=== PATIENT | female | born 1950 | race Caucasian/White ===

== ENCOUNTER 2022-08-10 11:30 | Outpatient (REF) | payer MEDICARE, OTHER, SELFPAY ==
[2022-08-10 13:31] LABS: MANUAL DIFF FLAG NO
[2022-08-10 13:38] LABS: Basophils Absolute Auto 0.1 X10*3/uL (0.0-0.2); Basophils Percent Auto 1.5 % (0-2); Eosinophils Absolute Auto 0.2 X10*3/uL (0.0-0.4); Eosinophils Percent Auto 2.7 % (0-4); Hematocrit 42.9 % (37.0-47.0); Hemoglobin 14.3 g/dl (12.0-16.0); Imm Gran Abs Auto 0.02 X10*3/uL (0.00-0.03); Imm Gran Pct Auto 0.3 % (0.0-0.4); Lymphocytes Percent Auto 17.2 % (20-40); Mean Corpuscular HGB Conc 33.3 g/dl (31.0-35.0); Mean Corpuscular Hemoglobin 30.1 pg (27.0-33.0); Mean Corpuscular Volume 90.3 fL (80.0-98.0); Mean Platelet Volume 10.9 fL (9.4-12.3); Monocytes Absolute Auto 0.4 X10*3/uL (0.1-1.2); Monocytes Percent Auto 7.2 % (2-11); Neutrophils Absolute Auto 4.2 x10*3/uL (2.0-8.3); Neutrophils Percent Auto 71.1 % (45-73); Platelet Count 236 X10*3/uL (160-400); Red Blood Count 4.75 X10*6/uL (4.20-5.50); White Blood Count 5.9 X10*3/uL (4.8-10.8)
[2022-08-10 13:58] LABS: Alanine Aminotransferase 18 U/L (0-31); Albumin Level 4.4 g/dL (3.5-5.0); Alkaline Phosphatase 71 U/L (39-117); Anion Gap 14 (12-20); Aspartate Amino Transferase 20 U/L (5-31); Bilirubin Total 0.8 mg/dL (0.0-1.0); Blood Urea Nitrogen 12 mg/dL (9-16); C Reactive Protein 0.12 mg/dL (< or = 0.50); Carbon Dioxide 29 mmol/L (22-29); Chloride 104 mmol/L (96-108); Estimated Glomerular Filt Rate > 60; Glucose Random 93 mg/dL (60-115); Potassium 4.6 mmol/L (3.3-5.1); Sodium 142 mmol/L (135-145); Total Protein 6.7 g/dL (6.5-8.0)
[2022-08-10 14:18] LABS: Rheumatoid Factor < 13.0 IU/mL (<15.0)
[2022-08-10 14:27] LABS: Erythrocyte Sedimentation Rate 12 MM/HR (0-20)
[2022-08-13 16:34] LABS: Cyclic Citrullinated Peptide <16 UNITS
== END 2022-08-10 11:31 | disposition home or self-care (01) ==
LOC: HO.10HDL 11:30
PROVIDERS: Visit Provider Internal Medicine Rheumatology
DX: Z13.89 Encounter for screening for other disorder (principal)
CPT/HCPCS: 36415; 80053; 85025; 85652; 86140; 86200; 86431

== ENCOUNTER → 2022-08-10 | Outpatient (BNVA) | payer MEDICARE, OTHER, SELFPAY | PROVIDERS: Visit Provider Internal Medicine Rheumatology | DX: M06.00 Rheumatoid arthritis without rheumatoid factor, unspecified site (principal); Z79.60 Long term (current) use of unspecified immunomodulators and immunosuppressants | CPT/HCPCS: 36415; 80053; 85025; 85652; 86140; 86200; 86431; 99202 ==

== ENCOUNTER 2022-11-11 09:43 | Outpatient (AMB) | payer MEDICARE, OTHER, SELFPAY ==
--- NOTE | 2022-11-11 09:46 | A.OFFVIS_ITS ---
Intake Vital Signs 11/11/22 09:47 Height 5 ft 2 in Weight 170 lb 3.15 oz BMI 31.1 BP 140/76 H Blood Pressure Location Rt brachial Position Sitting Pulse 70 Pulse Source Pulse Oximeter Temp 98.4 F Temp Source Skin Pulse Oximetry (%) 97 Intake Visit Reasons: ra Intake Note: Pt seen today for RA follow up. Reports 2 toes on left foot are turning ; left wrist pain. Boiler Reliner Required: No Accompanied by: Self / Same As Patient Allergies atorvastatin Allergy (Mild, Verified 11/11/22 09:48) Muscle cramps Medication List - Last Reconciled 11/11/22 by Michael Schmitt MD folic acid 1 mg PO DAILY leucovorin calcium 5 mg PO DAILY lisinopril 5 mg PO DAILY methotrexate sodium 12.5 mg (5 x 2.5 mg) PO QWEEK omeprazole 20 mg PO DAILY PRN propranolol ER 60 mg PO DAILY HPI HPI Comments History of Present Illness Details Patient returns for evaluation of her rheumatoid arthritis. She remains on 12.5 mg weekly methotrexate, folic acid 1 mg daily and Leucovorin 20 mg once a week. In general the joints have been reasonably comfortable with occasional discomfort in the wrists and the toes. I was trying to get her to reduce the dose of the Leucovorin. However when she got down to 5 mg weekly she felt there was some hair loss going on so she increased it back up to 20 mg weekly. There was no sign that she had skin rash on the scalp. She does not have any other side effects of note. She notes some changes in the direction of her toes in the left foot. [facility] Medical History (Updated 08/16/22 @ 17:53 by Michael Schmitt MD) Anemia Arthrosis of foot Atrial fibrillation Benign essential hypertension Gastroesophageal reflux Hearing loss Nonexudative age-related macular degeneration Obesity On intermodal owner operator truck driver drug therapy Osteopenia Pure hypercholesterolemia Rheumatoid arthritis Vitamin D deficiency Surgical History History of Hx of cataract surgery Hx of cholecystectomy S/P arthrocentesis Family History Father Hypertensive disorder Heart disease Mother Dementia Coronary arteriosclerosis Maternal Grandfather Dementia Social History (Reviewed 11/11/22 @ 09:49 by Courtney Massey [facility] Alcohol intake: current Alcohol intake frequency: does not drink Patient Tobacco Use Status: Former Tobacco user Quit Date: 1969 Review of Systems Const Details: Some thinning of the hair over the vertex. No scalp rashes. Negative for appetite change, weight change, fever, chills, malaise and fatigue Eyes Details: Negative for vision change, dry eyes,headaches and dizziness ENT Details: Negative for hearing change, tinnitus, oral ulcer, nose bleeds and oral dryness. Card Details: Negative chest pain, edema and syncope Resp Details: Negative for SOB, cough and wheezing GI Details: Negative indigestion/heartburn, nausea, abdominal pain, bowel changes, diarrhea, constipation and bloody stool. Skin/Breast Details: Negative for itching, rash, hives, Raynaud's symptoms, sun sensitivity, and skin cancer Endo Details: Negative for polyuria and polydypsia Nicko/Lymph Details: Negative for excessive bruising or bleeding. Physical Exam Vital Signs: Last Vital Signs Temp 98.4 F 11/11/22 09:47 Pulse 70 11/11/22 09:47 BP 140/76 H 11/11/22 09:47 Pulse Ox 97 11/11/22 09:47 BMI result Body Mass Index 31.1 APPEARANCE: Patient in no acute distress EYES no redness, pupils equal and reactive to light, eyelids normal EXTREMITIES: No edema, no calf tenderness, normal peripheral pulses. JOINT EXAM: ?? Cervical Spine:.? Full range of motion without pain; no tenderness. Thoracic Spine:.? No scoliosis.? No tenderness on palpation. Lumbar Spine:.? Alignment normal.? Full range of motion without pain, no tenderness. Chest Wall:.? No tenderness, swelling, increased warmth or erythema. Hands:? Right:? There is nontender swelling of all the MCP joints; this is a bit more prominent at the 2nd and 3rd MCP.? This hand seems smaller in size than the left hand.? There is mild tenderness and bony enlargement at the thumb IP joint.? There is slight tenderness along the thumb flexor tendon but no swelling or triggering.? There is no thenar atrophy or sensory loss.? Left:? There is slight thickening at the 1st 2 MCP joints but they are not tender. There is some slight thickening and mild pain at the thumb IP joint.? The remainder of the joints have no tenderness, swelling, flexor tendon triggering, thenar atrophy or sensory loss. Wrists:? Right: Flexion is intact only to 20 degrees and there is no extension.? There is slight pain at the extremes of these motions with some mild dorsal tenderness without swelling or redness.? Left:? Range of motion is limited to 20 degrees flexion or extension with some mild pain at those extremes.? There is mild tenderness without swelling.? No redness or warmth. Elbows:. Normal pain-free range of motion without tenderness, swelling, increased warmth or erythema. Shoulders:?? Full range of motion without pain. No tenderness, weakness, swelling, increased warmth or erythema. Hips:? Full range of motion without pain. Hip bursa:.? No tenderness. Knees:? Right: Mild patellofemoral crepitus and slight pain with extremes of flexion extension.? There is some mild medial tenderness, some valgus deformity but no effusion, redness or warmth.? Left:? The? Normal pain-free range of motion mild patellofemoral crepitus and some valgus deformity.? There is no effusion, tenderness, swelling, increased warmth or erythema.? Ankles:? Right:? The ankle looks larger than the left.? There is some pain with attempts at inversion and eversion and mild medial lateral tenderness but no redness or swelling.? There is evidence from surgery on the medial aspect.? There is slight discomfort with extremes of flexion extension but no swelling.? Left:? Normal pain-free range of motion with some slight medial tenderness but no swelling, increased warmth or erythema. Feet:? Right: There is some degree of a fallen arch in the foot.? There is hammertoes in the 2nd through 5th toes but these are not tender.? There is no instep or MTP tenderness.? The right foot seem smaller than the left.? Left:? Normal pain-free range of motion without tenderness, swelling, increased warmth or erythema. There is some slight lateral deviation in the toes. Tender points:.? No tenderness to digital palpation at the occiput, trapezius, second rib, lateral epicondyle, knees, greater trochanter and gluteal area bilaterally. ? Assessment & Plan Assessment & Plan (1) Long-term use of immunosuppressant medication: Code(s): Z79.60 - senior care (current) use of unspecified immunomodulators and immunosuppressants (2) Seronegative rheumatoid arthritis: Comment: Onset age 5. Triple arthrodesis right ankle as a child. 2008 put on methotrexate, not tolerated due to nausea 2009 Enbrel for a year. Not effective. 2010 Methotrexate restarted at a lower dose and was effective and tolerated Code(s): M06.00 - Rheumatoid arthritis without rheumatoid factor, unspecified site Plan There is longstanding rheumatoid arthritis here with some deformity. There is not much in the way of tenderness; there is some chronic swelling so I do not think there is much active synovitis. We will check lab work today and if that looks okay continue with the current dose of methotrexate. She did get some hair thinning she believes with the reduction in the Leucovorin so we will keep it up at 20 mg weekly. A follow-up in 3-4 months with lab work before that visit would be reasonable. Orders: Orders Alanine Aminotransferase Today M06.00 - Rheumatoid arthritis without rheumatoid factor, unspecified site, Z79.899 - Other intermodal owner operator truck driver (current) drug therapy Aspartate Amino Transferase Today M06.00 - Rheumatoid arthritis without rheumatoid factor, unspecified site, Z79.899 - Other intermodal owner operator truck driver (current) drug therapy Creatinine Today M06.00 - Rheumatoid arthritis without rheumatoid factor, unspecified site, Z79.899 - Other longterm (current) drug therapy C Reactive Protein Today M06.00 - Rheumatoid arthritis without rheumatoid factor, unspecified site Complete Blood Count Auto Diff Today M06.00 - Rheumatoid arthritis without rheumatoid factor, unspecified site, Z79.899 - Other intermodal owner operator truck driver (current) drug therapy Erythrocyte Sedimentation Rate Today M06.00 - Rheumatoid arthritis without rheumatoid factor, unspecified site Medications: Changed From leucovorin calcium 5 mg PO DAILY Z79.60 - supervisor intermediates (current) use of unspecified immunomodulators and immunosuppressants To leucovorin calcium 20 mg (4 x 5 mg) PO QWEEK 60 tabs 2RF Z79.60 - supervisor intermediates (current) use of unspecified immunomodulators and immunosuppressants Coding Level of Care Code Est Pt Level 3 (81150) Diagnoses Long-term use of immunosuppressant medication Z79.60 Seronegative rheumatoid arthritis M06.00
[2022-11-11 09:47] VITALS: BP 140/76; PULSE 70; TEMP 36.9; O2SAT 97; BMI 31.1
== END 2022-11-11 10:23 | disposition home or self-care (01) ==
PROVIDERS: Visit Provider Internal Medicine Rheumatology
DX: Z79.60 Long term (current) use of unspecified immunomodulators and immunosuppressants (principal); M06.00 Rheumatoid arthritis without rheumatoid factor, unspecified site
CPT/HCPCS: 99213

== ENCOUNTER → 2022-11-11 09:43 | Outpatient (BNVA) | payer MEDICARE, OTHER, SELFPAY | PROVIDERS: Visit Provider Internal Medicine Rheumatology ==

== ENCOUNTER 2022-11-11 10:27 | Outpatient (REF) | payer MEDICARE, OTHER, SELFPAY ==
[2022-11-11 11:04] LABS: MANUAL DIFF FLAG NO
[2022-11-11 11:42] LABS: Basophils Absolute Auto 0.1 X10*3/uL (0.0-0.2); Basophils Percent Auto 0.9 % (0-2); Eosinophils Absolute Auto 0.1 X10*3/uL (0.0-0.4); Eosinophils Percent Auto 1.4 % (0-4); Hematocrit 43.6 % (37.0-47.0); Hemoglobin 14.4 g/dl (12.0-16.0); Imm Gran Abs Auto 0.03 X10*3/uL (0.00-0.03); Imm Gran Pct Auto 0.3 % (0.0-0.4); Lymphocytes Percent Auto 10.7 % (20-40); Mean Corpuscular Hemoglobin 29.6 pg (27.0-33.0); Mean Corpuscular Volume 89.5 fL (80.0-98.0); Mean Platelet Volume 10.3 fL (9.4-12.3); Monocytes Absolute Auto 0.7 X10*3/uL (0.1-1.2); Monocytes Percent Auto 7.4 % (2-11); Neutrophils Absolute Auto 7.2 x10*3/uL (2.0-8.3); Neutrophils Percent Auto 79.3 % (45-73); Platelet Count 244 X10*3/uL (160-400); Red Blood Count 4.87 X10*6/uL (4.20-5.50); Red Cell Distribution Width 13.6 % (11.0-16.0)
[2022-11-11 12:12] LABS: Alanine Aminotransferase 18 U/L (0-31); Aspartate Amino Transferase 18 U/L (5-31); C Reactive Protein 0.27 mg/dL (< or = 0.50); Estimated Glomerular Filt Rate > 60
[2022-11-11 12:24] LABS: Erythrocyte Sedimentation Rate 12 MM/HR (0-20)
== END 2022-11-11 10:28 | disposition home or self-care (01) ==
LOC: HO.10HDL 10:27
PROVIDERS: Visit Provider Internal Medicine Rheumatology
DX: M06.00 Rheumatoid arthritis without rheumatoid factor, unspecified site (principal); Z79.899 Other long term (current) drug therapy
CPT/HCPCS: 36415; 82565; 84450; 84460; 85025; 85652; 86140

== ENCOUNTER 2023-03-15 09:45 | Outpatient (REF) | payer MEDICARE, OTHER, SELFPAY ==
[2023-03-15 10:22] LABS: MANUAL DIFF FLAG NO
[2023-03-15 10:32] LABS: Basophils Absolute Auto 0.1 X10*3/uL (0.0-0.2); Basophils Percent Auto 1.3 % (0-2); Eosinophils Absolute Auto 0.1 X10*3/uL (0.0-0.4); Eosinophils Percent Auto 2.5 % (0-4); Hematocrit 42.5 % (37.0-47.0); Hemoglobin 14.3 g/dl (12.0-16.0); Imm Gran Abs Auto 0.03 X10*3/uL (0.00-0.03); Imm Gran Pct Auto 0.5 % (0.0-0.4); Lymphocytes Absolute Auto 1.2 X10*3/uL (1.2-4.9); Lymphocytes Percent Auto 21.6 % (20-40); Mean Corpuscular HGB Conc 33.6 g/dl (31.0-35.0); Mean Corpuscular Hemoglobin 29.6 pg (27.0-33.0); Mean Platelet Volume 10.3 fL (9.4-12.3); Monocytes Absolute Auto 0.5 X10*3/uL (0.1-1.2); Monocytes Percent Auto 8.5 % (2-11); Neutrophils Absolute Auto 3.6 x10*3/uL (2.0-8.3); Neutrophils Percent Auto 65.6 % (45-73); Platelet Count 228 X10*3/uL (160-400); Red Blood Count 4.83 X10*6/uL (4.20-5.50); White Blood Count 5.5 X10*3/uL (4.8-10.8)
[2023-03-15 10:39] LABS: Alanine Aminotransferase 18 U/L (0-31); Aspartate Amino Transferase 19 U/L (5-31); C Reactive Protein 0.24 mg/dL (< or = 0.50); Estimated Glomerular Filt Rate > 60
[2023-03-15 11:18] LABS: Erythrocyte Sedimentation Rate 12 MM/HR (0-20)
== END 2023-03-15 09:46 | disposition home or self-care (01) ==
LOC: HO.10HDL 09:45
PROVIDERS: Visit Provider Internal Medicine Rheumatology
DX: M06.00 Rheumatoid arthritis without rheumatoid factor, unspecified site (principal); M75.81 Other shoulder lesions, right shoulder; Z79.60 Long term (current) use of unspecified immunomodulators and immunosuppressants; Z79.899 Other long term (current) drug therapy
CPT/HCPCS: 36415; 82565; 84450; 84460; 85025; 85652; 86140; 99212

== ENCOUNTER 2023-03-15 10:04 | Outpatient (AMB) | payer MEDICARE, OTHER, SELFPAY ==
--- NOTE | 2023-03-15 10:43 | MHC.OFFVIS ---
Intake Vital Signs 03/15/23 10:44 Height 5 ft 2 in Weight 171 lb 15.369 oz BMI 31.4 BP 102/64 Blood Pressure Location Lt brachial Position Sitting Pulse 54 Pulse Source Pulse Oximeter Temp 97.5 F Temp Source Skin Pulse Oximetry (%) 97 Oxygen Delivery Method Room Air Intake Visit Reasons: RA Intake Note: Patient presents today to follow up on RA. Last seen by Dr. Schmitt on 11/11/22. Four Slide Operator Required: No Accompanied by: Self / Same As Patient Allergies atorvastatin Allergy (Mild, Verified 03/15/23 10:45) Muscle cramps Medication List - Last Reconciled 03/15/23 by Michael Schmitt MD folic acid 1 mg PO DAILY leucovorin calcium 20 mg (4 x 5 mg) PO QWEEK lisinopril 5 mg PO DAILY methotrexate sodium 12.5 mg (5 x 2.5 mg) PO QWEEK omeprazole 20 mg PO DAILY PRN propranolol ER 60 mg PO DAILY HPI HPI Comments History of Present Illness Details The patient returns today for evaluation of her rheumatoid arthritis. She remains on methotrexate 12.5 mg once a week, folic acid 1 mg daily, and Leucovorin 20 mg once a week. The Leucovorin is supplied with 5 mg tablets so she takes 4 tablets once a week. Apparently there was a mixup and she not did get folic acid for a while. She also had held the methotrexate for 2 doses after her COVID vaccination. There has been a bit more pain in the right wrist and right shoulder region. She has from chronic pain in the right ankle where she has had previous surgery. There was no injury to the shoulder that she can recall. [facility] Medical History (Updated 03/15/23 @ 11:20 by Michael Schmitt MD) Arthrosis of foot On termite renewal inspector drug therapy Osteopenia Rheumatoid arthritis Gastroesophageal reflux Atrial fibrillation Benign essential hypertension Hearing loss Nonexudative age-related macular degeneration Anemia Obesity Pure hypercholesterolemia Vitamin D deficiency Surgical History S/P arthrocentesis History of Hx of cholecystectomy Hx of cataract surgery Family History Father Hypertensive disorder Heart disease Mother Dementia Coronary arteriosclerosis Maternal Grandfather Dementia Social History (Updated 03/15/23 @ 10:47 by HUGO Cunningham) Alcohol intake: former Patient Tobacco Use Status: Former Tobacco user Quit Date: 1969 Review of Systems Const Details: Negative for appetite change, weight change, fever, chills, malaise and fatigue Eyes Details: Negative for vision change, dry eyes,headaches and dizziness ENT Details: Negative for hearing change, tinnitus, oral ulcer, nose bleeds and oral dryness. Card Details: Negative chest pain, edema and syncope Resp Details: Negative for SOB, cough and wheezing GI Details: Negative indigestion/heartburn, nausea, abdominal pain, bowel changes, diarrhea, constipation and bloody stool. Endo Details: Negative for polyuria and polydypsia Nicko/Lymph Details: Negative for excessive bruising or bleeding. Physical Exam Vital Signs: Last Vital Signs Temp 97.5 F 03/15/23 10:44 Pulse 54 03/15/23 10:44 BP 102/64 03/15/23 10:44 Pulse Ox 97 03/15/23 10:44 Oxygen Delivery Method Room Air 03/15/23 10:44 BMI result Body Mass Index 31.4 APPEARANCE: Patient in no acute distress EXTREMITIES: No edema, no calf tenderness, normal peripheral pulses. JOINT EXAM: ?? Cervical Spine:.? Full range of motion without pain; no tenderness. Thoracic Spine:.? No scoliosis.? No tenderness on palpation. Lumbar Spine:.? Alignment normal.? Full range of motion without pain, no tenderness. Chest Wall:.? No tenderness, swelling, increased warmth or erythema. Hands:? Right:? There is nontender swelling of all the MCP joints; this is a bit more prominent at the 2nd and 3rd MCP.? This hand seems smaller in size than the left hand.? There is mild tenderness and bony enlargement at the thumb IP joint.? There is slight tenderness along the thumb flexor tendon but no swelling or triggering.? She has some slight thickening at the 3rd PIP without tenderness. There is no thenar atrophy or sensory loss.? Left:? There is slight thickening at the 1st 2 MCP joints but they are not tender. There is some slight thickening and mild pain at the thumb IP joint.? The thumb IP joint has no active extends in possible. However passive extension is normal. Is she is able however to oppose the thumb to the other 4 fingers. The remainder of the joints have no tenderness, swelling, flexor tendon triggering, thenar atrophy or sensory loss. Wrists:? Right: Flexion is intact only to 20 degrees and there is no extension.? There is slight pain at the extremes of these motions with some mild dorsal tenderness without swelling or redness.? Left:? Range of motion is limited to 20 degrees flexion or extension with some mild pain at those extremes.? There is mild tenderness without swelling.? No redness or warmth. Elbows:. Normal pain-free range of motion without tenderness, swelling, increased warmth or erythema. Shoulders:??Right: Mild pain with abduction at 150 degrees or with extremes of rotation. There is mild anterior tenderness without swelling. There is no abductor weakness or adenopathy. Left: Full range of motion without pain. No tenderness, weakness, swelling, increased warmth or erythema. Hips:? Full range of motion without pain. Hip bursa:.? No tenderness. Knees:? Right: Mild patellofemoral crepitus and slight pain with extremes of flexion extension.? There is some mild medial tenderness, some valgus deformity but no effusion, redness or warmth.? Left:? The? Normal pain-free range of motion mild patellofemoral crepitus and some valgus deformity.? There is no effusion, tenderness, swelling, increased warmth or erythema.? Ankles:? Right:? The ankle looks larger than the left.? There is some pain with attempts at inversion and eversion; no motion in that direction is possible. There is mild medial and lateral tenderness but no redness or swelling.? There is evidence from surgery on the medial aspect and there is mild valgus deformity.? There is slight discomfort with extremes of flexion and extension but no swelling.? Left:? Normal pain-free range of motion with some slight medial tenderness but no swelling, increased warmth or erythema. Feet:? Right: There is some degree of a fallen arch in the foot.? There is hammertoes in the 2nd through 5th toes but these are not tender.? There is no instep or MTP tenderness.? The right foot seem smaller than the left.? Left:? Normal pain-free range of motion without tenderness, swelling, increased warmth or erythema. There is some slight lateral deviation in the toes. Tender points:.? No tenderness to digital palpation at the occiput, trapezius, second rib, lateral epicondyle, knees, greater trochanter and gluteal area bilaterally. ? Results Reviewed Results Reviewed: Laboratory Tests 03/15/23 09:50 WBC 5.5 Hgb 14.3 AST 19 ALT 18 C-Reactive Protein 0.24 Assessment & Plan Assessment & Plan (1) Tendinitis of right rotator cuff: Code(s): M75.81 - Other shoulder lesions, right shoulder (2) Long-term use of immunosuppressant medication: Code(s): Z79.60 - intermediate accountant (current) use of unspecified immunomodulators and immunosuppressants (3) Seronegative rheumatoid arthritis: Comment: Onset age 5. Triple arthrodesis right ankle as a child. 2008 put on methotrexate, not tolerated due to nausea 2009 Enbrel for a year. Not effective. 2010 Methotrexate restarted at a lower dose and was effective and tolerated Code(s): M06.00 - Rheumatoid arthritis without rheumatoid factor, unspecified site Plan Rheumatoid arthritis with I think now notmuch in the way of active synovitis currently. She has longstanding disease with some deformity and limited motion in many joints. The wrists have limited range of motion so likely have some secondary OA. The right shoulder has some limited motion with pain suggesting some rotator cuff tendinitis although I can not rule out some underlying glenohumeral osteoarthritis and or rotator cuff attrition. We will try to get an x-ray of that shoulder and send her for some physical therapy. She wants to have the physical therapy done in [place] so we will try to arrange that. She will continue with the methotrexate, Leucovorin and folic acid as above. A follow-up at 3-4 months is reasonable. I have put in lab work to be done before that visit. Orders: Orders PT Evaluation and Treatment Today M75.81 - Other shoulder lesions, right shoulder XR shoulder RT min 2V Today M06.00 - Rheumatoid arthritis without rheumatoid factor, unspecified site Erythrocyte Sedimentation Rate 1 Month M06.00 - Rheumatoid arthritis without rheumatoid factor, unspecified site Alanine Aminotransferase Today M06.00 - Rheumatoid arthritis without rheumatoid factor, unspecified site, Z79.899 - Other termite renewal inspector (current) drug therapy Aspartate Amino Transferase Today M06.00 - Rheumatoid arthritis without rheumatoid factor, unspecified site, Z79.899 - Other termite renewal inspector (current) drug therapy C Reactive Protein 1 Month M06.00 - Rheumatoid arthritis without rheumatoid factor, unspecified site Complete Blood Count Auto Diff 1 Month M06.00 - Rheumatoid arthritis without rheumatoid factor, unspecified site, Z79.899 - Other fci (current) drug therapy Creatinine Today M06.00 - Rheumatoid arthritis without rheumatoid factor, unspecified site, Z79.899 - Other fci (current) drug therapy Coding Level of Care Code Est Pt Level 3 (88105) Diagnoses Tendinitis of right rotator cuff M75.81 Long-term use of immunosuppressant medication Z79.60 Seronegative rheumatoid arthritis M06.00
[2023-03-15 10:44] VITALS: BP 102/64; PULSE 54; TEMP 36.4; O2SAT 97; BMI 31.4
== END 2023-03-15 11:27 | disposition home or self-care (01) ==
PROVIDERS: PCP Family Medicine; Visit Provider Internal Medicine Rheumatology
DX: M75.81 Other shoulder lesions, right shoulder (principal); Z79.60 Long term (current) use of unspecified immunomodulators and immunosuppressants; M06.00 Rheumatoid arthritis without rheumatoid factor, unspecified site
CPT/HCPCS: 99213

== ENCOUNTER 2023-09-28 13:07 | Outpatient (AMB) | payer MEDICARE, OTHER, SELFPAY ==
--- NOTE | 2023-09-28 13:17 | MHC.OFFVIS ---
Vital Signs 09/28/23 13:23 Height 5 ft 2 in Weight 176 lb 2.389 oz BMI 32.2 BP 130/76 Blood Pressure Location Lt brachial Position Sitting Pulse 78 Pulse Oximetry (%) 96 Intake Visit Reasons: ra Intake Note: Patient previously seen on 03/15/[address] Schmitt, presents today for RA follow up. Pt reports onset of kathrin hip pain back in January that was controlled with prednisone. Reoccurrence x 1 wk. Allergies atorvastatin Allergy (Mild, Verified 09/28/23 13:24) Muscle cramps Medication List - Last Reconciled 09/28/23 by KATINA Ackerman- folic acid 1 mg PO BID leucovorin calcium 20 mg (4 x 5 mg) PO QWEEK lisinopril 5 mg PO DAILY methotrexate sodium 12.5 mg (5 x 2.5 mg) PO QWEEK omeprazole 20 mg PO DAILY PRN propranolol ER 60 mg PO DAILY HPI Comments Details: Ms. Bush 73 yoF returns today for follow up of her rheumatoid arthritis. She remains on methotrexate 12.5 mg once a week, folic acid 1 mg daily, and Leucovorin 20 mg once a week. The Leucovorin is supplied with 5 mg tablets so she takes 4 tablets once a week. Her right shoulder has been resolved. 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 --Upon inquiry about Folic Acid and Leucovorin quantity - Patient shares that she has been taking this combo for years. When Dr. Schmitt tried to reduce it she experienced increased hair loss. Recently also dud to a mix up in her RX, she was only given 1 mf Folic acid QD and then started having increased hair shedding. Dr. Velazquez gave her the original RX of 2mg QD folic Acid and this stopped the shedding. 03/15/2023 Dr. Schmitt: The patient returns today for evaluation of her rheumatoid arthritis. She remains on methotrexate 12.5 mg once a week, folic acid 1 mg daily, and Leucovorin 20 mg once a week. The Leucovorin is supplied with 5 mg tablets so she takes 4 tablets once a week. Apparently there was a mixup and she not did get folic acid for a while. She also had held the methotrexate for 2 doses after her COVID vaccination. There has been a bit more pain in the right wrist and right shoulder region. She has from chronic pain in the right ankle where she has had previous surgery. There was no injury to the shoulder that she can recall. [facility] Medical History (Updated 09/28/23 @ 13:47 by [facility]) Arthrosis of foot On prison drug therapy Osteopenia Rheumatoid arthritis Gastroesophageal reflux Atrial fibrillation Benign essential hypertension Hearing loss Nonexudative age-related macular degeneration Anemia Obesity Pure hypercholesterolemia Vitamin D deficiency Surgical History S/P arthrocentesis History of Hx of cholecystectomy Hx of cataract surgery Family History Father Hypertensive disorder Heart disease Mother Dementia Coronary arteriosclerosis Maternal Grandfather Dementia Social History Alcohol intake: former Patient Tobacco Use Status: Former Tobacco user Review of Systems Const All systems reviewed & are unremarkable except as noted in HPI and below Physical Exam Vital Signs: Last Vital Signs Pulse 78 09/28/23 13:23 BP 130/76 09/28/23 13:23 Pulse Ox 96 09/28/23 13:23 BMI result Body Mass Index 32.2 APPEARANCE: Patient in no acute distress EXTREMITIES: No edema, no calf tenderness, normal peripheral pulses. JOINT EXAM: ?? Cervical Spine:.? Full range of motion without pain; no tenderness. Thoracic Spine:.? No scoliosis.? No tenderness on palpation. Lumbar Spine:.? Alignment normal.? Full range of motion without pain, no tenderness. Chest Wall:.? No tenderness, swelling, increased warmth or erythema. Hands:? Right:? There is nontender swelling of all the MCP joints; this is a bit more prominent at the 2nd and 3rd MCP.? This hand seems smaller in size than the left hand.? There is mild tenderness and bony enlargement at the thumb IP joint.? There is slight tenderness along the thumb flexor tendon but no swelling or triggering.? She has some slight thickening at the 3rd PIP without tenderness. There is no thenar atrophy or sensory loss.? boutonneire deformity to thumb Left:? There is slight thickening at the 1st 2 MCP joints but they are not tender. There is some slight thickening and mild pain at the thumb IP joint.? The thumb IP joint has no active extends in possible. However passive extension is normal. She is able however to oppose the thumb to the other 4 fingers. The remainder of the joints have no tenderness, swelling, flexor tendon triggering, thenar atrophy or sensory loss. boutonneire deformity to thumb Wrists:? Right: Flexion is intact only to 20 degrees and there is no extension.? There is slight pain at the extremes of these motions with some mild dorsal tenderness without swelling or redness.? Left:? Range of motion is limited to 20 degrees flexion or extension with some mild pain at those extremes.? There is mild tenderness without swelling.? No redness or warmth. Elbows:. Normal pain-free range of motion without tenderness, swelling, increased warmth or erythema. Shoulders:??Right: Mild pain with abduction at 150 degrees or with extremes of rotation. There is mild anterior tenderness without swelling. There is no abductor weakness or adenopathy. Left: Full range of motion without pain. No tenderness, weakness, swelling, increased warmth or erythema. Hips:? Full range of motion without pain. Hip bursa:.? Bilateral tenderness. Knees:? Right: Mild patellofemoral crepitus and slight pain with extremes of flexion extension.? There is some mild medial tenderness, some valgus deformity but no effusion, redness or warmth.? Left:? The? Normal pain-free range of motion mild patellofemoral crepitus and some valgus deformity.? There is no effusion, tenderness, swelling, increased warmth or erythema.? Ankles:? Right:? The ankle looks larger than the left.? There is some pain with attempts at inversion and eversion; no motion in that direction is possible. There is mild medial and lateral tenderness but no redness or swelling.? There is evidence from surgery on the medial aspect and there is mild valgus deformity.? There is slight discomfort with extremes of flexion and extension but no swelling.? Left:? Normal pain-free range of motion with some slight medial tenderness but no swelling, increased warmth or erythema. Feet:? Right: There is some degree of a fallen arch in the foot.? There is hammertoes in the 2nd through 5th toes but these are not tender.? There is no instep or MTP tenderness.? The right foot seem smaller than the left.? Left:? Normal pain-free range of motion without tenderness, swelling, increased warmth or erythema. There is some slight lateral deviation in the toes. Tender points:.? No tenderness to digital palpation at the occiput, trapezius, second rib, lateral epicondyle, knees, greater trochanter and gluteal area bilaterally. ? Results Reviewed Results Reviewed: Laboratory Tests 03/15/23 09:50 RBC 4.83 Hgb 14.3 Hct 42.5 MCV 88.0 ESR 12 AST 19 ALT 18 C-Reactive Protein 0.24 Assessment & Plan Assessment & Plan (1) Tendinitis of right rotator cuff: Code(s): M75.81 - Other shoulder lesions, right shoulder Category: Medical (2) Long-term use of immunosuppressant medication: Code(s): Z79.60 - long term care phlebotomist (current) use of unspecified immunomodulators and immunosuppressants Category: Medical (3) Seronegative rheumatoid arthritis: Comment: Onset age 5. Triple arthrodesis right ankle as a child. 2008 put on methotrexate, not tolerated due to nausea 2009 Enbrel for a year. Not effective. 2010 Methotrexate restarted at a lower dose and was effective and tolerated Code(s): M06.00 - Rheumatoid arthritis without rheumatoid factor, unspecified site Category: Medical Plan #Rheumatoid arthritis with no active synovitis currently. She has longstanding disease with some deformity and limited motion in many joints. The wrists have limited range of motion so likely have some secondary, and underlying glenohumeral osteoarthritis and or rotator cuff attrition. She has completed physical therapy done in [place] and felt improvement. She will continue with the methotrexate 12.5mg, Leucovorin 20mg and folic acid 2mg Qd. A follow-up at 4 months is reasonable. I have put in lab work to be done today - last labs 03/2023. Orders: Orders Erythrocyte Sedimentation Rate 09/28/23 M06.00 - Rheumatoid arthritis without rheumatoid factor, unspecified site, Z79.60 - group home (current) use of unspecified immunomodulators and immunosuppressants Complete Blood Count Auto Diff 09/28/23 M06.00 - Rheumatoid arthritis without rheumatoid factor, unspecified site, Z79.60 - group home (current) use of unspecified immunomodulators and immunosuppressants Comprehensive Met. Panel 09/28/23 M06.00 - Rheumatoid arthritis without rheumatoid factor, unspecified site, Z79.60 - long term care phlebotomist (current) use of unspecified immunomodulators and immunosuppressants C Reactive Protein 09/28/23 M06.00 - Rheumatoid arthritis without rheumatoid factor, unspecified site, Z79.60 - group home (current) use of unspecified immunomodulators and immunosuppressants Medications: New omeprazole 20 mg PO DAILY PRN 90 caps 1RF GERD K21.9 - Gastro-esophageal reflux disease without esophagitis Changed From folic acid 1 mg PO BID M06.00 - Rheumatoid arthritis without rheumatoid factor, unspecified site, Z79.60 - group home (current) use of unspecified immunomodulators and immunosuppressants To folic acid 2 mg (2 x 1 mg) PO DAILY 180 tabs 1RF M06.00 - Rheumatoid arthritis without rheumatoid factor, unspecified site, Z79.60 - long term care phlebotomist (current) use of unspecified immunomodulators and immunosuppressants Coding Level of Care Code Est Pt Level 3 (78086) Complex EM visit Add On G2211 Diagnoses Tendinitis of right rotator cuff M75.81 Long-term use of immunosuppressant medication Z79.60 Seronegative rheumatoid arthritis M06.00
[2023-09-28 13:23] VITALS: BP 130/76; PULSE 78; O2SAT 96; BMI 32.2
== END 2023-09-28 14:03 | disposition home or self-care (01) ==
PROVIDERS: PCP Family Medicine; Visit Provider Nurse Practitioner Family
DX: M75.81 Other shoulder lesions, right shoulder (principal); Z79.60 Long term (current) use of unspecified immunomodulators and immunosuppressants; M06.00 Rheumatoid arthritis without rheumatoid factor, unspecified site
CPT/HCPCS: 99213; G2211

== ENCOUNTER → 2023-09-28 13:07 | Outpatient (BNVA) | payer MEDICARE, OTHER, SELFPAY | PROVIDERS: PCP Family Medicine; Visit Provider Nurse Practitioner Family | DX: M06.00 Rheumatoid arthritis without rheumatoid factor, unspecified site (principal); M75.81 Other shoulder lesions, right shoulder; Z79.60 Long term (current) use of unspecified immunomodulators and immunosuppressants | CPT/HCPCS: 99212 ==

== ENCOUNTER 2024-01-26 10:17 | Outpatient (REF) | payer MEDICARE, OTHER, SELFPAY ==
--- NOTE | ~2024-01-26 | XR_ITS ---
EXAMINATION: XR ANKLE, LEFT CLINICAL INFORMATION: M06.00 - Rheumatoid arthritis without rheumatoid factor, unspecified site COMPARISON: None available. TECHNIQUE: AP, lateral, and mortise views of the left ankle. FINDINGS: Normal bony mineralization. No fracture, dislocation, or suspicious bone lesion. There is normal alignment of the left ankle joint. The talar dome is normal. The mortise is intact. The syndesmosis is intact. No arthritic changes of the ankle. The subtalar joints appear normal. Small plantar calcaneal spur. No discrete soft tissue abnormality. XR/XR ankle LT 2V IMPRESSION: Normal left ankle. Electronically signed by: Deshaun Rodriguez MD 04/03/2024 03:13 PM [facility]
--- NOTE | ~2024-01-26 | XR_ITS ---
EXAMINATION: XR FOOT, LEFT CLINICAL INFORMATION: M06.00 - Rheumatoid arthritis without rheumatoid factor, unspecified site COMPARISON: None available. TECHNIQUE: AP, lateral, and oblique views of the left foot. FINDINGS: There is normal bone mineralization. No fracture, dislocation, or suspicious bone lesion. Normal alignment. Normal appearance of the midfoot, forefoot, and hindfoot. Small plantar calcaneal spur. No soft tissue abnormality. XR/XR foot LT 2V IMPRESSION: Normal exam aside from a small plantar spur. Electronically signed by: Deshaun Rodriguez MD 04/03/2024 03:14 PM [facility]
--- NOTE | ~2024-01-26 | XR_ITS ---
EXAMINATION: XR ANKLE, RIGHT CLINICAL INFORMATION: M06.00 - Rheumatoid arthritis without rheumatoid factor, unspecified site COMPARISON: None available. TECHNIQUE: AP, lateral, and mortise views of the right ankle. FINDINGS: Mild osteopenia suspected. No fracture, dislocation, or suspicious bone lesion. There is normal alignment of the right ankle joint. The talar dome is normal. The mortise is intact. The syndesmosis is intact. No arthritic changes of the ankle. There is poor delineation of the subtalar joints, possibly due to obliquity although subtalar fusion not excluded. There is medial soft tissue swelling of the ankle. XR/XR ankle RT 2V IMPRESSION: 1. No fracture or dislocation. Normal alignment. 2. Medial soft tissue swelling. 3. Possible fusion of the subtalar joints versus projectional phenomenon. Electronically signed by: Deshaun Rodriguez MD 04/03/2024 03:05 PM [facility] [place]
--- NOTE | ~2024-01-26 | XR_ITS ---
EXAMINATION: XR KNEE, RIGHT CLINICAL INFORMATION: M06.00 - Rheumatoid arthritis without rheumatoid factor, unspecified site COMPARISON: None available. TECHNIQUE: Four views of the right knee. FINDINGS: Normal bony mineralization. No fracture, dislocation, or focal bone abnormality. There is normal alignment of the knee joint. Mild tricompartmental osteoarthrosis is present without predilection for any one compartment. There is mild spurring of the tibial spines. There is no evidence of significant joint effusion. There are saphenous varicosities in the soft tissues. XR/XR knee RT 2V IMPRESSION: 1. No acute findings right knee. 2. Mild tricompartmental arthritis. Electronically signed by: Deshaun Rodriguez MD 04/03/2024 03:16 PM [facility]
--- NOTE | ~2024-01-26 | XR_ITS ---
EXAMINATION: XR FOOT, RIGHT CLINICAL INFORMATION: M06.00 - Rheumatoid arthritis without rheumatoid factor, unspecified site COMPARISON: None available. TECHNIQUE: AP, lateral, and oblique views of the right foot. FINDINGS: Mild osteopenia suspected. No fracture, dislocation, or suspicious bone lesion. There appears to be fusion of the subtalar joints, including the calcaneocuboid and calcaneonavicular as well as the talonavicular joints. There are hammertoes of the second through fifth digits. The first MTP joint is normal. No discrete soft tissue abnormality. XR/XR foot RT 2V IMPRESSION: 1. No acute findings right foot. 2. Osteopenia. 3. Fusion of the subtalar joints, including the calcaneocuboid, calcaneonavicular, and talonavicular joints. Electronically signed by: Deshaun Rodriguez MD 04/03/2024 03:11 PM [facility]
--- NOTE | ~2024-01-26 | XR_ITS ---
EXAMINATION: XR HAND/WRIST, RIGHT CLINICAL INFORMATION: M06.00 - Rheumatoid arthritis without rheumatoid factor, unspecified site COMPARISON: None available. TECHNIQUE: PA, lateral, oblique, and scaphoid views of the right hand and wrist. FINDINGS: There is mild diffuse osteopenia. No fracture, dislocation, or focal bony abnormality. Nonvisualization of the proximal carpal row including the lunate and and a portion of the scaphoid. The scaphoid is sclerotic suggesting AVN. Severe arthritic changes with sclerosis, remodeling and joint space loss at the radiocarpal joint and the DRUJ. Blunting of the ulnar styloid Mild arthritis noted throughout the MCPs, most significant in the second. No definite erosions seen. Moderate to severe focal arthritis in the interphalangeal joint of the thumb. Otherwise, the DIP and PIP joints appear grossly normal. Mild soft tissue prominence surrounding the MCPs. XR/XR hand wrist RT IMPRESSION: 1. Mild osteopenia. 2. Proximal carpal row appears absent. Sclerosis of the scaphoid suggesting AVN. 3. Severe arthritic changes in the radiocarpal joint and DRUJ. 4. Moderate arthritis with mild subluxation noted in the interphalangeal joint of the thumb. 5. Mild arthritis seen throughout the MCPs, most significant in the second MCP. 6. Soft tissue prominence surrounding the MCPs. Electronically signed by: Deshaun Rodriguez MD 04/03/2024 03:21 PM [facility]
--- NOTE | ~2024-01-26 | XR_ITS ---
EXAMINATION: XR KNEE, LEFT CLINICAL INFORMATION: M06.00 - Rheumatoid arthritis without rheumatoid factor, unspecified site COMPARISON: None available. TECHNIQUE: Four views of the left knee. FINDINGS: Normal bone mineralization. No fracture, dislocation, or suspicious bone lesion. There is normal alignment of the knee joint. There is perhaps minimal lateral compartment narrowing. Medial and patellofemoral compartments are preserved. Minimal spurring of the tibial spines. No evidence of joint effusion. Normal soft tissues. XR/XR knee LT 2V IMPRESSION: 1. No acute findings in the left knee. 2. Early arthritis in the lateral compartment. Electronically signed by: Deshaun Rodriguez MD 04/03/2024 03:01 PM [facility]
--- NOTE | ~2024-01-26 | XR_ITS ---
EXAMINATION: XR HAND/WRIST, LEFT CLINICAL INFORMATION: M06.00 - Rheumatoid arthritis without rheumatoid factor, unspecified site COMPARISON: None available. TECHNIQUE: PA, lateral, and oblique views of the left hand and wrist. FINDINGS: There is mild diffuse osteopenia. No fracture, dislocation, or suspicious bone lesion. Scapholunate advanced collapse noted, with diminutive appearing sclerotic lunate and sclerosis of the scaphoid suggesting AVN. The capitate has subluxed in between the diminutive lunate and the scaphoid. There is likely a component of DISI manifested by mild dorsal lunate tilt. Distal carpal row appears normal. Severe arthritis in the radiocarpal joint and DRUJ, similar to the contralateral side. Blunted ulnar styloid. There are mild arthritis noted in the first and second MCP joints. Mild mild to moderate changes also noted in the interphalangeal joint of the thumb. No joint erosions. The DIPs and PIPs remain intact. Mild arthritis at the first CMC and STT joints. No discrete soft tissue abnormalities. XR/XR hand wrist LT IMPRESSION: 1. [facility] wrist. 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 There is likely a component of DISI. 2. Severe arthritis in the DRUJ and radiocarpal joint. 3. Mild arthritis in the first and second MCP joints, as well as the first CMC joint and STT joints. 4. Normal soft tissues. Electronically signed by: Deshaun Rodriguez MD 04/03/2024 03:28 PM [facility]
== END 2024-01-26 10:18 | disposition home or self-care (01) ==
LOC: HO.XRAY 10:17
PROVIDERS: PCP Family Medicine; Visit Provider Student in an Organized Health Care Education/Training Program
DX: M06.00 Rheumatoid arthritis without rheumatoid factor, unspecified site (principal); Z79.631 Long term (current) use of antimetabolite agent
CPT/HCPCS: 73110; 73130; 73560; 73600; 73620; 99212

== ENCOUNTER 2024-01-26 10:17 | Outpatient (AMB) | payer MEDICARE, OTHER, SELFPAY ==
[2024-01-26 10:21] VITALS: BP 128/72; PULSE 62; O2SAT 97; BMI 32.2
--- NOTE | 2024-01-26 10:21 | MHC.OFFVIS ---
Vital Signs 01/26/24 10:21 Height 5 ft 2 in Weight 176 lb 2.389 oz BMI 32.2 BP 128/72 Blood Pressure Location Lt brachial Position Sitting Pulse 62 Pulse Source Pulse Oximeter Pulse Oximetry (%) 97 Oxygen Delivery Method Room Air Intake Visit Reasons: RA/Trochanteric Bursitis. Intake Note: Patient last seen by Yue Lemus on 09/28/23. Presents today for RA/Trochanteric Bursitis and test results. Allergies atorvastatin Allergy (Mild, Verified 01/26/24 10:26) Muscle cramps Medication List - Last Reconciled 01/26/24 by Maddison Benito MD folic acid 2 mg (2 x 1 mg) PO DAILY leucovorin calcium 20 mg (4 x 5 mg) PO QWEEK lisinopril 5 mg PO DAILY methotrexate sodium 12.5 mg (5 x 2.5 mg) PO QWEEK omeprazole 20 mg PO DAILY PRN propranolol ER 60 mg PO DAILY HPI Comments Details: Interval History: Last seen 09/28/23 with Yue Lemus [facility] At that time patient was complaining of bilateral hip pain for 5 months, this was thought to be due to trochanteric bursitis and conservative management was implemented Her inflammatory arthritis was stable Today she complains of - left knee pain for the past 2 months with intermittent swelling that is self-limited. The pain is worse after much activity. - also complaining of right wrist pain. This is intermittent. Not associated with swelling. Other than the above complaints she overall has no additional complaints. Minimal morning stiffness. Denies any new rashes, new nodules, hair loss, eye pain or inflammation. Does report new onset of shortness of breath with exertion. 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 Denies any leg swelling or orthopnea. Also noting methotrexate flu-like symptoms on the day after her methotrexate. She takes her methotrexate on Saturdays and notices that on Sundays that she has nausea and just overall feeling of fatigue. But this has not stopped her daily activity or impeded her taking her methotrexate Of note patient states that she has had 2 mechanical falls. One in September and 1 in October. She denies any prodromal symptoms or loss of consciousness after the fall. Did not seek medical attention, able to ambulate after the falls Rheumatologic History: Patient is a 73 y.o. Female with a longstanding history of seronegative inflammatory arthritis. Diagnosed with LUANA as a child at age 5. Has been on methotrexate since then. Has not been on steroids for a very long time as per patient. Onset age 5. Triple arthrodesis right ankle as a child. 2008 put on methotrexate, not tolerated due to nausea 2009 Enbrel for a year. Not effective. 2010 Methotrexate restarted at a lower dose and was effective and tolerated Medication History: Methotrexate 12.5mg (5 tablets of 2.5mg) weekly (Saturdays) Folic Acid 2mg daily Leucovorin 20mg (4 tablets of 5mg) weekly (Tuesday) [facility] Medical History (Updated 01/26/24 @ 11:55 by Maddison Benito MD) Methotrexate, superintendent terminal, current use Arthrosis of foot On senior living drug therapy Osteopenia Rheumatoid arthritis Gastroesophageal reflux Atrial fibrillation Benign essential hypertension Hearing loss Nonexudative age-related macular degeneration Anemia Obesity Pure hypercholesterolemia Vitamin D deficiency Surgical History S/P arthrocentesis History of Hx of cholecystectomy Hx of cataract surgery Family History Father Hypertensive disorder Heart disease Mother Dementia Coronary arteriosclerosis Maternal Grandfather Dementia Social History Alcohol intake: former Patient Tobacco Use Status: Former Tobacco user Review of Systems Const All systems reviewed & are unremarkable except as noted in HPI and below Reports frequent falls, Denies malaise, Denies poor appetite and Denies weight loss Eyes Details: No red eyes, eye pain ENT Details: No new nodules or lymph nodes Card Details: Worsening shortness of breath Denies chest pain Resp Details: Worsening shortness of breath on exertion GI Denies abdominal pain Musc Reports arthralgias Neuro Reports frequent falls Physical Exam Vital Signs: Last Vital Signs Pulse 62 01/26/24 10:21 BP 128/72 01/26/24 10:21 Pulse Ox 97 01/26/24 10:21 Oxygen Delivery Method Room Air 01/26/24 10:21 BMI result Body Mass Index 32.2 Extrem Other: Right Hand: no synovitis. synovial hypertrophy to the 1st and 2nd MCP without TTP Left Hand: No synovitis Right Wrist: unable to flex or extend. Left Wrist: moderate reduction in ROM. R>L Bilateral Elbows full ROM. No TTP Bilateral shoulders no impingement Left knee: very trace effusion , no warmth. full ROM Right knee: no effusion, no warmth. Full ROM Bilateral feet: negative squeeze test Right ankle: decreased ROM (has hardware) Left ankle normal ROM Results Reviewed Results Reviewed: Laboratory Tests 03/15/23 09:50 WBC 5.5 RBC 4.83 Hgb 14.3 Hct 42.5 MCV 88.0 MCH 29.6 MCHC 33.6 RDW 14.0 Plt Count 228 ESR 12 Creatinine 0.85 AST 19 ALT 18 C-Reactive Protein 0.24 I personally reviewed the lab findings and imaging that was available Assessment & Plan Assessment & Plan (1) Seronegative rheumatoid arthritis: Code(s): M06.00 - Rheumatoid arthritis without rheumatoid factor, unspecified site Category: Medical Plan: Patient with longstanding history seronegative inflammatory arthritis on a background of LUANA as a child. Currently on low-dose methotrexate 12.5 mg weekly with folic acid and leucovorin to counteract her methotrexate side effects. Currently her inflammatory arthritis is stable her CDAI today is 2 (0/0/2/0) indicating remission. We will get labs today as well as x-rays of her hands, wrist, knees, feet and ankles. There are no x-rays on file and given her complaints of pain want to make sure that there is not progression of her disease that is not being picked up on exam (2) Methotrexate, superintendent terminal, current use: Code(s): Z79.631 - vermin exterminator (current) use of antimetabolite agent Category: Medical Plan: Discussed with patient the benefits and risks of methotrexate for managing their rheumatic condition ? Benefits include reduced pain, reduced mortality, maintenance of remission and reduction of flares ? Risks include oral ulcers, photosensitivity, hepatotoxicity, hematologic toxicity, pneumonitis, flu-like symptoms (especially day after administration), nodulosis, lymphomas ? Limit alcohol and avoid Bactrim ? Monitoring: CBC, BMP, LFTs, hepatitis serologies as needed (3) Osteoporosis screening: Code(s): Z13.820 - Encounter for screening for osteoporosis Plan: No DEXA scan noted in chart. Patient is 73 years old and meets criteria for osteoporosis screening not just from her age but from her longstanding rheumatic condition. DEXA ordered today as well as vitamin-D Plan Patient to return to clinic in 3 months I spent 35 minutes coordinating care for this patient including [id number] patient time, chart review, explanation of medical findings and review of labs Orders: Orders Erythrocyte Sedimentation Rate Today M06.00 - Rheumatoid arthritis without rheumatoid factor, unspecified site, Z79.631 - shelter (current) use of antimetabolite agent XR hand RT 2V Today M06.00 - Rheumatoid arthritis without rheumatoid factor, unspecified site XR knee LT 2V Today M06.00 - Rheumatoid arthritis without rheumatoid factor, unspecified site XR ankle LT 2V Today M06.00 - Rheumatoid arthritis without rheumatoid factor, unspecified site XR ankle RT 2V Today M06.00 - Rheumatoid arthritis without rheumatoid factor, unspecified site Erythrocyte Sedimentation Rate 3 Months M06.00 - Rheumatoid arthritis without rheumatoid factor, unspecified site, Z79.631 - shelter (current) use of antimetabolite agent C Reactive Protein 3 Months M06.00 - Rheumatoid arthritis without rheumatoid factor, unspecified site, Z79.631 - shelter (current) use of antimetabolite agent Comprehensive Met. Panel Today M06.00 - Rheumatoid arthritis without rheumatoid factor, unspecified site, Z79.631 - vermin exterminator (current) use of antimetabolite agent Complete Blood Count Auto Diff Today M06.00 - Rheumatoid arthritis without rheumatoid factor, unspecified site, Z79.631 - vermin exterminator (current) use of antimetabolite agent C Reactive Protein Today M06.00 - Rheumatoid arthritis without rheumatoid factor, unspecified site, Z79.631 - shelter (current) use of antimetabolite agent XR hand LT 2V Today M06.00 - Rheumatoid arthritis without rheumatoid factor, unspecified site XR knee RT 2V Today M06.00 - Rheumatoid arthritis without rheumatoid factor, unspecified site XR foot LT 2V Today M06.00 - Rheumatoid arthritis without rheumatoid factor, unspecified site XR foot RT 2V Today M06.00 - Rheumatoid arthritis without rheumatoid factor, unspecified site Comprehensive Met. Panel 3 Months M06.00 - Rheumatoid arthritis without rheumatoid factor, unspecified site, Z79.631 - shelter (current) use of antimetabolite agent Complete Blood Count Auto Diff 3 Months M06.00 - Rheumatoid arthritis without rheumatoid factor, unspecified site, Z79.631 - shelter (current) use of antimetabolite agent XR DEXA axial skeleton Today M81.0 - Age-related osteoporosis without current pathological fracture Vitamin D 25-OH (D2 and D3) Today E55.9 - Vitamin D deficiency, unspecified Coding Level of Care Code Est Pt Level 4 (36222) Complex EM visit Add On G2211 Diagnoses Seronegative rheumatoid arthritis M06.00 Methotrexate, superintendent terminal, current use Z79.631 Osteoporosis screening Z13.820 Time Spent (min) 35
== END 2024-01-26 11:09 | disposition home or self-care (01) ==
PROVIDERS: PCP Family Medicine; Visit Provider Student in an Organized Health Care Education/Training Program
DX: M06.09 Rheumatoid arthritis without rheumatoid factor, multiple sites (principal); Z79.631 Long term (current) use of antimetabolite agent; Z13.820 Encounter for screening for osteoporosis
CPT/HCPCS: 99214; G2211

== ENCOUNTER 2024-01-26 11:14 | Outpatient (REF) | payer MEDICARE, OTHER, SELFPAY ==
[2024-01-26 13:13] LABS: MANUAL DIFF FLAG NO
[2024-01-26 13:17] LABS: Basophils Absolute Auto 0.1 X10*3/uL (0.0-0.2); Basophils Percent Auto 1.7 % (0-2); Eosinophils Absolute Auto 0.1 X10*3/uL (0.0-0.4); Eosinophils Percent Auto 2.2 % (0-4); Hematocrit 44.3 % (37.0-47.0); Hemoglobin 14.9 g/dl (12.0-16.0); Imm Gran Abs Auto 0.01 X10*3/uL (0.00-0.03); Imm Gran Pct Auto 0.2 % (0.0-0.4); Lymphocytes Absolute Auto 1.1 X10*3/uL (1.2-4.9); Lymphocytes Percent Auto 16.9 % (20-40); Mean Corpuscular HGB Conc 33.6 g/dl (31.0-35.0); Mean Corpuscular Hemoglobin 30.3 pg (27.0-33.0); Mean Platelet Volume 10.1 fL (9.4-12.3); Monocytes Absolute Auto 0.6 X10*3/uL (0.1-1.2); Monocytes Percent Auto 9.1 % (2-11); Neutrophils Absolute Auto 4.6 x10*3/uL (2.0-8.3); Neutrophils Percent Auto 69.9 % (45-73); Platelet Count 239 X10*3/uL (160-400); Red Blood Count 4.92 X10*6/uL (4.20-5.50); White Blood Count 6.5 X10*3/uL (4.8-10.8)
[2024-01-26 14:08] LABS: Alanine Aminotransferase 23 U/L (0-31); Albumin Level 4.5 g/dL (3.5-5.0); Alkaline Phosphatase 70 U/L (39-117); Anion Gap 12 (12-20); Aspartate Amino Transferase 21 U/L (5-31); Bilirubin Total 0.5 mg/dL (0.0-1.0); Blood Urea Nitrogen 18 mg/dL (9-16); C Reactive Protein 0.31 mg/dL (< or = 0.50); Carbon Dioxide 26 mmol/L (22-29); Chloride 106 mmol/L (96-108); Estimated Glomerular Filt Rate > 60; Glucose Random 101 mg/dL (60-115); Potassium 4.2 mmol/L (3.3-5.1); Sodium 140 mmol/L (135-145); Total Protein 7.3 g/dL (6.5-8.0)
[2024-01-26 14:16] LABS: Erythrocyte Sedimentation Rate 12 MM/HR (0-20)
== END 2024-01-26 11:15 | disposition home or self-care (01) ==
LOC: HO.10HDL 11:14
PROVIDERS: Visit Provider Student in an Organized Health Care Education/Training Program
DX: M06.00 Rheumatoid arthritis without rheumatoid factor, unspecified site (principal); Z79.631 Long term (current) use of antimetabolite agent
CPT/HCPCS: 36415; 80053; 85025; 85652; 86140

== ENCOUNTER → 2024-01-26 11:29 | Outpatient (BNV) | payer MEDICARE, OTHER, SELFPAY | PROVIDERS: PCP Family Medicine; Visit Provider Radiology Diagnostic Radiology | DX: M06.00 Rheumatoid arthritis without rheumatoid factor, unspecified site (principal) | CPT/HCPCS: 73560; 73600; 73620 ==

== ENCOUNTER 2025-02-05 07:36 | Outpatient (REF) | payer MEDICARE, OTHER, SELFPAY ==
[2025-02-05 13:22] LABS: MANUAL DIFF FLAG NO
[2025-02-05 13:30] LABS: Hematocrit 42.9 % (37.0-47.0); Hemoglobin 14.2 g/dl (12.0-16.0); Imm Gran Abs Auto 0.02 X10*3/uL (0.00-0.03); Imm Gran Pct Auto 0.4 % (0.0-0.4); Lymphocytes Absolute Auto 0.8 X10*3/uL (1.2-4.9); Mean Corpuscular HGB Conc 33.1 g/dl (31.0-35.0); Mean Corpuscular Hemoglobin 30.1 pg (27.0-33.0); Mean Corpuscular Volume 90.9 fL (80.0-98.0); NRBC Abs Auto 0.000 X10*3/uL (0.0-0.012); NRBC Pct Auto 0.0 /100WBC (0.0-0.2); Platelet Count 228 X10*3/uL (160-400); Red Blood Count 4.72 X10*6/uL (4.20-5.50); White Blood Count 5.2 X10*3/uL (4.8-10.8)
[2025-02-05 14:02] LABS: Alanine Aminotransferase 20 U/L (0-31); Albumin Level 4.4 g/dL (3.5-5.0); Alkaline Phosphatase 73 U/L (39-117); Anion Gap 12 (12-20); Aspartate Amino Transferase 29 U/L (5-31); Blood Urea Nitrogen 13 mg/dL (9-16); Calcium 9.5 mg/dL (8.4-10.2); Carbon Dioxide 28 mmol/L (22-29); Chloride 108 mmol/L (96-108); Estimated Glomerular Filt Rate > 60; Potassium 4.8 mmol/L (3.3-5.1); Sodium 143 mmol/L (135-145); Total Protein 7.1 g/dL (6.5-8.0)
== END 2025-02-05 07:37 | disposition home or self-care (01) ==
LOC: HO.HKASLDS 07:36
PROVIDERS: PCP Family Medicine; Visit Provider Student in an Organized Health Care Education/Training Program
DX: Z51.81 Encounter for therapeutic drug level monitoring (principal); M06.00 Rheumatoid arthritis without rheumatoid factor, unspecified site; M85.89 Other specified disorders of bone density and structure, multiple sites; M67.911 Unspecified disorder of synovium and tendon, right shoulder; M67.912 Unspecified disorder of synovium and tendon, left shoulder; E55.9 Vitamin D deficiency, unspecified; Z79.631 Long term (current) use of antimetabolite agent; Z79.60 Long term (current) use of unspecified immunomodulators and immunosuppressants; Z79.899 Other long term (current) drug therapy
CPT/HCPCS: 36415; 80053; 82306; 85025; 85652; 86140; 99212

== ENCOUNTER 2025-02-05 07:36 | Outpatient (AMB) | payer MEDICARE, OTHER, SELFPAY ==
--- NOTE | 2025-02-05 07:49 | A.OFFVIS_ITS ---
Vital Signs 02/05/25 07:56 Height 5 ft 2 in Weight 177 lb 4.026 oz BMI 32.4 BP 134/80 Blood Pressure Location Rt brachial Position Sitting Pulse 57 Pulse Source Pulse Oximeter Pulse Oximetry (%) 98 Oxygen Delivery Method Room Air Intake Visit Reasons: RA Intake Note: Patient presents for RA follow up. Allergies atorvastatin Allergy (Mild, Verified 02/05/25 07:53) Muscle cramps Medication List - Last Reconciled 02/05/25 by Maddison Benito MD apixaban (Eliquis) 5 mg PO BID folic acid 2 mg (2 x 1 mg) PO DAILY leucovorin calcium 20 mg (4 x 5 mg) PO QWEEK losartan 25 mg PO DAILY methotrexate sodium 12.5 mg (5 x 2.5 mg) PO QWEEK omeprazole 20 mg PO DAILY PRN propranolol ER 60 mg PO DAILY HPI Comments Details: Patient is a 74-year-old female with hypertension, GERD, hyperlipidemia, and seronegative rheumatoid arthritis here today for follow up Interval History: Last seen 01/26/24 with me - On Methotrexate 12.5mg, folic acid 2mg and leucovorin 20mg every week - left knee pain for the past 2 months with intermittent swelling that is self- limited. The pain is worse after much activity. - also complaining of right wrist pain. This is intermittent. Not associated with swelling. Other than the above complaints she overall has no additional complaints. Minimal morning stiffness. Denies any new rashes, new nodules, hair loss, eye pain or inflammation. Does report new onset of shortness of breath with exertion. 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 Denies any leg swelling or orthopnea. Also noting methotrexate flu-like symptoms on the day after her methotrexate. She takes her methotrexate on Saturdays and notices that on Sundays that she has nausea and just overall feeling of fatigue. But this has not stopped her daily activity or impeded her taking her methotrexate Of note patient states that she has had 2 mechanical falls. One in September and 1 in October. She denies any prodromal symptoms or loss of consciousness after the fall. Did not seek medical attention, able to ambulate after the falls Today - On Methotrexate 12.5mg, folic acid 2mg and leucovorin 20mg every week - had open heart surgery and so she put her health on the back burner - Overall stable - Complains of intermittent pains to various places: legs, neck and shoulders - Notes some flu like sx 2 days after mtx but is able to tolerate Rheumatologic History: Patient is a 73 y.o. Female with a longstanding history of seronegative inflammatory arthritis. Diagnosed with LUANA as a child at age 5. Has been on methotrexate since then. Has not been on steroids for a very long time as per patient. Onset age 5. Triple arthrodesis right ankle as a child. 2008 put on methotrexate, not tolerated due to nausea 2009 Enbrel for a year. Not effective. 2010 Methotrexate restarted at a lower dose and was effective and tolerated Current Rheumatology Medication(s): Methotrexate 12.5mg (5 tablets of 2.5mg) weekly (Saturdays) Folic Acid 2mg daily Leucovorin 20mg (4 tablets of 5mg) weekly (Tuesday) [facility] Medical History (Updated 02/05/25 @ 09:47 by Maddison Benito MD) Methotrexate, mcc, current use Arthrosis of foot On rodent exterminator drug therapy Osteopenia Rheumatoid arthritis Gastroesophageal reflux Atrial fibrillation Benign essential hypertension Hearing loss Nonexudative age-related macular degeneration Anemia Obesity Pure hypercholesterolemia Vitamin D deficiency Surgical History S/P arthrocentesis History of Hx of cholecystectomy Hx of cataract surgery Family History Father Hypertensive disorder Heart disease Mother Dementia Coronary arteriosclerosis Maternal Grandfather Dementia Social History Alcohol intake: former Patient Tobacco Use Status: Former Tobacco user Review of Systems Const Details: Review of Systems Constitutional: Denies fever, chills, weight loss ENT: Denies vision changes, eye pain or eye redness, dental caries, dry mouth GI: Denies nausea, vomiting, diarrhea, abdominal pain, change in BM Pulm: Denies SOB, VILLA, hemoptysis, wheezing Cards: Denies chest pain, palpitations Skin: Denies Raynaud's, rash, nail changes, photosensitivity, TIMBER SIZER OPERATOR: Denies headaches, weakness, paresthesias, recurrent falls MSK: as per HPI All other systems reviewed and are unremarkable except noted above Physical Exam Exam Exam: Vital signs reviewed Physical Examination CONSTITUITIONAL Patient alert and cooperative. Well appearing and in no apparent painful distress MSK Hands * Right Hand: Able to make a fist. No swelling or tenderness to palpation of the MCPs, PIPs or DIPs. [place] neck deformity of the 3rd digit (reducible). Prominent MCPs (synovial hypertrophy) * Left Hand: Able to make a fist. No swelling or tenderness to palpation of the MCPs, PIPs or DIPs. [place] neck deformity of the 2nd digit (reducible). Prominent MCPs (synovial hypertrophy) Wrists * Right Wrist: Fixed wrist. No swelling or TTP * Left Wrist: Fixed wrist. No swelling or TTP Elbows * Right Elbow: Full ROM. No swelling or TTP. No TTP of the medial epicondyle. No TTP of the lateral epicondyle * Left Elbow: Full ROM. No swelling or TTP. No TTP of the medial epicondyle. No TTP of the lateral epicondyle Shoulders * Right shoulder: No swelling noted. No TTP of the AC joint. No TTP of the subacromial bursa. No TTP of the posterior shoulder. Positive H-K sign * Left shoulder: No swelling noted. No TTP of the AC joint. No TTP of the subacromial bursa. No TTP of the posterior shoulder Hip bursa: No tenderness to palpation bilaterally Knees * Right knee: Full ROM. No swelling noted. No TTP of the knee joint line. No TTP of pes anserine bursa * Left knee: Full ROM. No swelling noted. No TTP of the knee joint line. No TTP of pes anserine bursa. * Crepitations felt bilaterally Ankles * Right ankle: Good ankle dorsiflexion and plantar flexion. No swelling. No TTP of the ankle joint * Left ankle: Good ankle dorsiflexion and plantar flexion. No swelling. No TTP of the ankle joint Feet * Right foot: Negative squeeze test * Left foot: Negative squeeze test Tender points? * No tenderness to palpation of the bilateral trapezius, supraspinatus, anterior costochondral junctions, bilateral suboccipital muscle insertions SKIN No rashes Vital Signs: Last Vital Signs Pulse 57 02/05/25 07:56 BP 134/80 02/05/25 07:56 Pulse Ox 98 02/05/25 07:56 Oxygen Delivery Method Room Air 02/05/25 07:56 BMI result Body Mass Index 32.4 Results Reviewed Results Reviewed: Laboratory Tests 01/26/24 10/27/2024 11:18 VMG WBC 6.5 4.6 RBC 4.92 4.68 Hgb 14.9 14.1 Hct 44.3 43.8 Plt Count 239 198 ESR 12 6 Sodium 140 143 Potassium 4.2 4.6 Chloride 106 105 Carbon Dioxide 26 28 BUN 18 H 12 Creatinine 0.83 0.8 AST 21 17 ALT 23 27 C-Reactive Protein 0.31 2.1 DEXA 06/2021 Lumbar spine The BMD measured in the L1-L3 region is 1.044 G/cm 2. T-score = -1.1 Femoral neck The BMD measured at the right femoral neck is 0.778 G/cm2. T-score = -1.9 Total hip The BMD measured at the total right proximal femur is 0.865 G/cm2. T-score = - 1.1 There has been no significant change when compared to prior study from 07/2009 Fracture index 24.7%/11.3% Assessment & Plan Assessment & Plan (1) Seronegative rheumatoid arthritis: Code(s): M06.00 - Rheumatoid arthritis without rheumatoid factor, unspecified site Category: Medical Plan: #Seronegative RA Patient is a 74-year-old female with seronegative rheumatoid arthritis here today for follow up. Currently stable with no evidence of active synovitis on examination. Currently under stress at home due to her 's heart condition and his recovery after open heart surgery. Recommended that she continued to keep active doing stretches. Plan - Methotrexate 12.5 mg every week - Leucovorin 20 mg weekly - Folic acid 2 mg daily - RTC 6 months - CBC, CMP, ESR, CRP, (2) Osteopenia: Comment: DEXA 06/2021: AP Spine -1.1, Right femur neck -1.9, Right femur total -1.1. FRAX 24.7/11.3 Code(s): M85.80 - Other specified disorders of bone density and structure, unspecified site Category: Medical Qualifiers: Osteopenia location: multiple sites Qualified Code(s): M85.89 - Other specified disorders of bone density and structure, multiple sites Plan: #Osteopenia Patient with osteopenia based on last bone density. Her FRAX index was elevated so she should be on bone strengthening agents however this was not started. Since this bone density was a few years ago we can get an updated bone density and make treatment decisions based on that Plan - Vit D - DEXA (3) Encounter for methotrexate monitoring: Code(s): Z51.81 - Encounter for therapeutic drug level monitoring; Z79.631 - halfway (current) use of antimetabolite agent Plan: #Long-term Current Use of Methotrexate Discussed with patient the benefits and risks of methotrexate for managing their rheumatic condition Benefits include reduced pain, reduced mortality, maintenance of remission and reduction of flares Risks include oral ulcers, photosensitivity, hepatotoxicity, hematologic toxicity, pneumonitis, flu-like symptoms (especially day after administration), nodulosis, lymphomas ? Limit alcohol and avoid Bactrim ? Monitoring: CBC, BMP, LFTs every 3-4 months and hepatitis serologies as needed ? Methotrexate is teratogenic. If planning need to discontinue 3 months prior to conception Plan I spent 30 minutes reviewing the record and labs, taking a history, examining the patient, discussing the treatment plan, ordering diagnostic work up and documenting in the medical record Orders: Orders Complete Blood Count Auto Diff 6 Months E55.9 - Vitamin D deficiency, unspecified, M85.80 - Other specified disorders of bone density and structure, unspecified site, Z79.899 - Other mcc (current) drug therapy Comprehensive Met. Panel 6 Months E55.9 - Vitamin D deficiency, unspecified, M85.80 - Other specified disorders of bone density and structure, unspecified site, Z79.899 - Other mcc (current) drug therapy C Reactive Protein 6 Months E55.9 - Vitamin D deficiency, unspecified, M85.80 - Other specified disorders of bone density and structure, unspecified site, Z79.899 - Other rodent exterminator (current) drug therapy Erythrocyte Sedimentation Rate 6 Months E55.9 - Vitamin D deficiency, unspecified, M85.80 - Other specified disorders of bone density and structure, unspecified site, Z79.899 - Other mcc (current) drug therapy Vitamin D 25-OH Total 6 Months E55.9 - Vitamin D deficiency, unspecified, M85.80 - Other specified disorders of bone density and structure, unspecified site PT Evaluation and Treatment Today M67.911 - Unspecified disorder of synovium and tendon, right shoulder, M67.912 - Unspecified disorder of synovium and tendon, left shoulder Medications: Changed From methotrexate sodium 12.5 mg (5 x 2.5 mg) PO QWEEK 60 tabs 1RF M06.00 - Rheumatoid arthritis without rheumatoid factor, unspecified site To methotrexate sodium 12.5 mg (5 x 2.5 mg) PO QWEEK 65 tabs 1RF 90 days M06.00 - Rheumatoid arthritis without rheumatoid factor, unspecified site Refilled leucovorin calcium 20 mg (4 x 5 mg) PO QWEEK 52 tabs 2RF Z79.60 - exterminator (current) use of unspecified immunomodulators and immunosuppressants folic acid 2 mg (2 x 1 mg) PO DAILY 180 tabs 1RF M06.00 - Rheumatoid arthritis without rheumatoid factor, unspecified site, Z79.60 - exterminator (current) use of unspecified immunomodulators and immunosuppressants Coding Level of Care Code Est Pt Level 4 (01618) Complex EM visit Add On G2211 Diagnoses Seronegative rheumatoid arthritis M06.00 Osteopenia of multiple sites M85.89 Osteopenia location: multiple sites Encounter for methotrexate monitoring Z51.81; Z79.631
[2025-02-05 07:56] VITALS: BP 134/80; PULSE 57; O2SAT 98; BMI 32.4
== END 2025-02-05 08:40 | disposition home or self-care (01) ==
LOC: HO.RHES 07:37
PROVIDERS: PCP Family Medicine; Visit Provider Student in an Organized Health Care Education/Training Program
DX: M06.00 Rheumatoid arthritis without rheumatoid factor, unspecified site (principal); M85.89 Other specified disorders of bone density and structure, multiple sites; Z51.81 Encounter for therapeutic drug level monitoring; Z79.631 Long term (current) use of antimetabolite agent
CPT/HCPCS: 99214; G2211